=== PATIENT | female | born 1940 ===

== ENCOUNTER 2017-02-07 14:07 | Outpatient (CLI) | payer MEDICARE ==
--- NOTE | 2017-02-07 14:45 | Ultrasound Report ---
ULTRASOUND CHEST: 02/07/17 CLINICAL: Palpable lumps and pain of bilateral anterior lower chest wall. FINDINGS: Ultrasound of the bilateral lower anterior chest wall at the costal margin was performed and demonstrated no soft tissue mass and no rib abnormality. IMPRESSION: Negative study with no soft tissue mass identified.
== END 2017-02-07 14:08 | disposition home or self-care (01) ==
LOC: SPVWC 14:07
DX: R22.2 Localized swelling, mass and lump, trunk (principal)
CPT/HCPCS: 76604

== ENCOUNTER 2017-03-04 14:13 | Outpatient (CLI) | payer MEDICARE ==
--- NOTE | 2017-03-05 09:54 | Magnetic Resonance Report ---
MRI OF THE BRAIN WITHOUT CONTRAST: HISTORY: Headache, distal paresthesias PROCEDURE: Multiplanar, multisequence MR imaging of the brain without IV contrast was performed. FINDINGS: The brain parenchyma signal intensity and its spencer white interface are within normal limits on all sequences. No evidence for acute ischemia, hemorrhage or mass. No chronic infarct or extra-axial fluid collection. The midline structures are central. The basal cisterns are patent. Normal ventricular size. The orbital cavities and sella turcica demonstrate no abnormality. The visualized paranasal sinuses and mastoid air cells are well aerated. IMPRESSION: Unremarkable non-enhanced MRI of the brain.
== END 2017-03-04 14:14 | disposition home or self-care (01) ==
LOC: SPVIMAG 14:13
PROVIDERS: ATTEND Family Medicine
DX: Z09 Encounter for follow-up examination after completed treatment for conditions other than malignant neoplasm (principal); R51 Headache; R20.2 Paresthesia of skin
CPT/HCPCS: 70551

== ENCOUNTER 2017-08-12 13:14 | Outpatient (CLI) | payer MEDICARE ==
--- NOTE | 2017-08-12 13:37 | XRay Report ---
Chest 2 views: History: Cough. Findings normal cardiomediastinal silhouette the trachea is midline. Mild prominence of bronchovascular markings. No consolidation or pleural effusion. Impression: Probable bronchitis.
== END 2017-08-12 13:15 | disposition home or self-care (01) ==
LOC: SPVIMAG 13:14
PROVIDERS: ATTEND Internal Medicine
DX: R05 Cough (principal)
CPT/HCPCS: 71020